=== PATIENT | female | born 1985 | race Caucasian/White ===

== ENCOUNTER 2018-04-11 22:12 | Emergency (ER) | payer SELFPAY ==
[2018-04-11] MEDS ORDERED: Fluorescein Opthalmic Strip ONE ×2 (22:47)
[2018-04-11] MEDS ORDERED: Proparacaine 0.5% Opth 15 ML BOT ONE (22:47)
== END 2018-04-11 23:56 | disposition home or self-care (01) ==
LOC: ERS 22:12
DX: H10.45 Other chronic allergic conjunctivitis (principal); F17.210 Nicotine dependence, cigarettes, uncomplicated
CPT/HCPCS: 99283